=== PATIENT | female | born 1980 | race Caucasian/White ===

== ENCOUNTER 2020-03-30 10:56 | Outpatient (REF) | payer OTHER, SELFPAY ==
[2020-03-30 14:38] LABS: MANUAL DIFF FLAG NO
[2020-03-30 14:41] LABS: Basophils Percent Auto 0.4 % (0-2); Eosinophils Absolute Auto 0.1 X10*3/uL (0.0-0.4); Eosinophils Percent Auto 0.6 % (0-4); Hematocrit 39.6 % (37-47); Hemoglobin 13.1 g/dl (12.0-16.0); Imm Gran Abs Auto 0.04 X10*3/uL (0.00-0.03); Imm Gran Pct Auto 0.4 % (0.0-0.4); Lymphocytes Absolute Auto 2.9 X10*3/uL (1.2-4.9); Mean Corpuscular HGB Conc 33.1 g/dl (31.0-35.0); Mean Corpuscular Hemoglobin 30.2 pg (27.0-33.0); Mean Corpuscular Volume 91.2 fL (80-98); Mean Platelet Volume 10.8 fL (9.4-12.3); Monocytes Absolute Auto 0.5 X10*3/uL (0.1-1.2); Monocytes Percent Auto 4.8 % (2-11); Neutrophils Absolute Auto 6.8 X10*3/uL (2.0-8.3); Neutrophils Percent Auto 65.8 % (45-73); Platelet Count 282 X10*3/uL (160-400); Red Blood Count 4.34 X10*6/uL (4.20-5.50); Red Cell Distribution Width 12.4 % (11.0-16.0); White Blood Count 10.3 X10*3/uL (4.8-10.8)
[2020-03-30 15:09] LABS: Alanine Aminotransferase 20 U/L (0-31); Anion Gap 13 (12-20); Aspartate Amino Transferase 19 U/L (5-31); Blood Urea Nitrogen 10 mg/dL (9-16); Calcium 9.2 mg/dL (8.4-10.2); Carbon Dioxide 26 mmol/L (22-29); Chloride 103 mmol/L (96-108); Cholesterol 187 mg/dL; Estimated Glomerular Filt Rate > 60; Glucose Fasting 90 mg/dL (60-99); HDL Cholesterol 81 mg/dL; LDL Cholesterol Calculated 89 mg/dl; Potassium 4.2 mmol/l (3.3-5.1); Sodium 138 mmol/L (135-145); Triglycerides 88 mg/dL
[2020-03-30 15:32] LABS: TSH reflex Free T4 1.06 mIU/mL (0.32-4.0); Vitamin D 25-OH Total 31.1 ng/mL (>30)
[2020-03-30 15:49] LABS: Folate > 20.0 ng/mL (> or = 4.0); Vitamin B12 465 pg/mL (200-900)
== END 2020-03-30 10:57 | disposition home or self-care (01) ==
LOC: HO.HMGCLDS 10:56
PROVIDERS: PCP Internal Medicine; Visit Provider Internal Medicine
DX: Z00.01 Encounter for general adult medical examination with abnormal findings (principal); R53.83 Other fatigue; N94.3 Premenstrual tension syndrome; E55.9 Vitamin D deficiency, unspecified; E66.9 Obesity, unspecified; I10 Essential (primary) hypertension
CPT/HCPCS: 36415; 80048; 80061; 82306; 82607; 82746; 84443; 84450; 84460; 85025

== ENCOUNTER 2021-04-01 11:40 | Outpatient (REF) | payer OTHER, SELFPAY ==
[2021-04-01 11:46] LABS: MANUAL DIFF FLAG NO
[2021-04-01 14:03] LABS: Basophils Absolute Auto 0.1 X10*3/uL (0.0-0.2); Basophils Percent Auto 0.5 % (0-2); Eosinophils Absolute Auto 0.1 X10*3/uL (0.0-0.4); Eosinophils Percent Auto 1.2 % (0-4); Hematocrit 39.4 % (37.0-47.0); Imm Gran Abs Auto 0.04 X10*3/uL (0.00-0.03); Imm Gran Pct Auto 0.4 % (0.0-0.4); Lymphocytes Absolute Auto 3.1 X10*3/uL (1.2-4.9); Lymphocytes Percent Auto 29.6 % (20-40); Mean Corpuscular Hemoglobin 29.5 pg (27.0-33.0); Mean Corpuscular Volume 89.3 fL (80.0-98.0); Mean Platelet Volume 10.4 fL (9.4-12.3); Monocytes Absolute Auto 0.5 X10*3/uL (0.1-1.2); Monocytes Percent Auto 4.3 % (2-11); Neutrophils Absolute Auto 6.6 x10*3/uL (2.0-8.3); Platelet Count 288 X10*3/uL (160-400); Red Blood Count 4.41 X10*6/uL (4.20-5.50); Red Cell Distribution Width 12.6 % (11.0-16.0); White Blood Count 10.4 X10*3/uL (4.8-10.8)
[2021-04-01 14:22] LABS: Alanine Aminotransferase 24 U/L (0-31); Anion Gap 16 (12-20); Aspartate Amino Transferase 22 U/L (5-31); Blood Urea Nitrogen 11 mg/dL (9-16); Carbon Dioxide 20 mmol/L (22-29); Chloride 107 mmol/L (96-108); Cholesterol 189 mg/dL; Estimated Glomerular Filt Rate > 60; Glucose Fasting 94 mg/dL (60-99); HDL Cholesterol 79 mg/dL; LDL Cholesterol Calculated 85 mg/dl; Potassium 4.1 mmol/L (3.3-5.1); Sodium 139 mmol/L (135-145); Triglycerides 125 mg/dL
[2021-04-01 14:43] LABS: Vitamin D 25-OH Total 33.5 ng/mL (>30)
== END 2021-04-01 11:41 | disposition home or self-care (01) ==
LOC: HO.HMGCLDS 11:40
PROVIDERS: PCP Internal Medicine; Visit Provider Internal Medicine
DX: Z00.01 Encounter for general adult medical examination with abnormal findings (principal); R53.83 Other fatigue; N94.3 Premenstrual tension syndrome; R42 Dizziness and giddiness; I10 Essential (primary) hypertension
CPT/HCPCS: 36415; 80048; 80061; 82306; 84443; 84450; 84460; 85025

== ENCOUNTER 2021-04-15 09:30 | Outpatient (RCR) | payer OTHER, SELFPAY ==
[2021-04-10 07:53] VITALS: BP 142/82; PULSE 100; O2SAT 98
--- NOTE | 2021-04-10 09:02 | MHC.PT.EP ---
[facility] [place] Office [place] [facility] [place] Office [address] Omid Alfredo [address] [phone] F: [phone] F: [phone] F: [phone] F: [phone] Physical Therapy Plan of Care Date of Evaluation: Date of Surgery: Diagnosis: This is a 40 yo female presenting to skilled PT with a script for dizziness and giddiness, positional lightheadedness. Assessment: This is a 40 yo female presenting to skilled PT with a script for dizziness and giddiness, positional lightheadedness. Patient reporting that she has been dizzy for a little over a month. Symptoms have improved but she continues to feel symptoms when rolling in the bed to the R and looking up/down in the shower. Examination shows normal oculomotor tests except for horizontal saccades with ML, (-) VBI B, and WFL cervical AROM (but has tightness). She was (+) for BPPV with veronique-hallpike and R lina maneuver which was improved s/p tx. She demos normal scores on the balance tests. S/S consistent with R PC BPPV and she would benefit from PT 2x/wk for 4wks to address impairments, implement HEP and optimize functional mobility. Frequency and Duration: The patient will be seen 2x/wk for 4wks Short Term Goals: Corporate Scheduler Goals: I in HEP No nystagmus or symptoms in any testing positions No LOB noted and normal scores on balance tests Return to sleeping as normal without dizziness Treatment Plan: Modalities to reduce pain, spasms and effusion. Manual therapy to restore motion and function. Therapeutic exercise to improve strength and flexibility. Neuromuscular re-education for posture and balance. Therapeutic activities to return to functional activities of daily living. Electronically signed by: Negra Crandall PT Please sign and return to therapist. Thank you for your referral.
--- NOTE | 2021-05-23 13:43 | MHC.PT.DC ---
[facility] [place] Office [place] Office [place] Office [address] Omid Alfredo [address] [phone] F: [phone] F: [phone] F: [phone] F: [phone] Physical Therapy Discharge Report Diagnosis: This is a 40 yo female presenting to skilled PT with a script for dizziness and giddiness, positional lightheadedness. Date of Surgery: Date of Evaluation: 04/10/21 Date of Discharge: 05/23/21 Treatments to Date: 2 Cancellations to Date: 0 No Shows to Date: 0 Discharge Status: Achieved Goals Improved Function Independent with HEP Discharge Summary: Patient with improvements since eval. No symptoms at the last tx session and she did not do her HEP due to improvements in symptoms. She was negative in all 6 canals and demo'd normal scores on balance tests. Educated on calling office if symptoms returned. Chart was kept open for 30 days. Electronically signed by: Negra Crandall, PT Please sign and return to therapist. Thank you for your referral.
== END 2021-05-23 13:43 | disposition home or self-care (01) ==
LOC: HO.PTCHIC 09:30
PROVIDERS: PCP Internal Medicine; Visit Provider Internal Medicine
DX: R42 Dizziness and giddiness (principal)
CPT/HCPCS: 95992; 97161

== ENCOUNTER 2022-04-09 08:51 | Outpatient (REF) | payer OTHER, SELFPAY ==
--- NOTE | ~2022-04-09 | XR_ITS ---
EXAMINATION: XR CERVICAL SPINE CLINICAL INFORMATION: Pain COMPARISON: None TECHNIQUE: 6 views including oblique imaging. FINDINGS: Normal lordosis is maintained here. There is some early degenerative change most noted at C4-C5 greater than C5-C6 and C3-4. Some early posterior lipping is present. This appears mild. The oblique imaging is nondiagnostic on the left. Suboptimal rotation. On the right also suboptimal. I must consider some foraminal encroachment at C3-C4, C4-C5 greater than C5-C6 on the left. XR/XR cervical spine 4V IMPRESSION: Findings as described above. Some early degenerative changes are felt to be present. If further evaluation is warranted recommend MR.
[2022-04-09 13:26] LABS: Alanine Aminotransferase 23 U/L (0-31); Anion Gap 17 (12-20); Aspartate Amino Transferase 21 U/L (5-31); Blood Urea Nitrogen 12 mg/dL (9-16); Calcium 9.5 mg/dL (8.4-10.2); Carbon Dioxide 18 mmol/L (22-29); Chloride 107 mmol/L (96-108); Cholesterol 197 mg/dL; Estimated Glomerular Filt Rate > 60; Glucose Fasting 107 mg/dL (60-99); HDL Cholesterol 84 mg/dL; LDL Cholesterol Calculated 95 mg/dl; Potassium 4.6 mmol/L (3.3-5.1); Sodium 137 mmol/L (135-145); TSH reflex Free T4 1.29 uIU/mL (0.32-4.0); Triglycerides 94 mg/dL; Vitamin D 25-OH Total 36.8 ng/mL (>30)
== END 2022-04-09 08:52 | disposition home or self-care (01) ==
LOC: HO.HMGCX 08:51
PROVIDERS: PCP Internal Medicine; Visit Provider Internal Medicine
DX: Z00.01 Encounter for general adult medical examination with abnormal findings (principal); G47.9 Sleep disorder, unspecified; M54.2 Cervicalgia
CPT/HCPCS: 36415; 72050; 80048; 80061; 82306; 84443; 84450; 84460

== ENCOUNTER 2023-04-22 08:05 | Outpatient (AMB) | payer OTHER, SELFPAY ==
[2023-04-22 08:10] VITALS: BP 148/90; PULSE 101; O2SAT 100; BMI 38.3
--- NOTE | 2023-04-22 08:10 | MHC.PC.OV ---
Vital Signs 04/22/23 08:10 04/22/23 09:08 Height 5 ft 6 in Weight 237 lb 2 oz BMI 38.3 BP 148/90 H 130/75 Blood Pressure Location Lt brachial Lt brachial Position Sitting Sitting Pulse 101 H 94 Pulse Source Pulse Oximeter Palpation Pulse Oximetry (%) 100 Oxygen Delivery Method Room Air Intake Visit Reasons: Annual PE Intake Note: Pt is here for her Annual PE Is last menstrual period known: Yes Last menstrual period: 02/24/23 Allergies No Known Allergies Allergy (Verified 04/22/23 08:24) Medication List - Last Reconciled 04/22/23 by wSati Elizabeth MD B-complex with vitamin C 1 tab PO DAILY cetirizine (Zyrtec) 10 mg PO DAILY PRN cholecalciferol (vitamin D3) 50 mcg PO DAILY ibuprofen (IBU-200) 400 mg PO Q8H magnesium 250 mg PO DAILY multivitamin 1 tab PO DAILY Tobacco use date assessed: 04/22/23 Dental Screening Dental Screen Date: 04/22/23 Did you have a dental visit in the last 12 months?: Yes Did you have a dental problem in the last 6 months where you did not have access to dental care?: No Was dental information given to patient?: Patient has dentist HPI Annual PE HPI Details 42year old lady here today for physical exam. She is up-to-date with her screening mammogram, gets it done at [facility]. She has her own OBGYN, Dr. Cabrera, who does her cervical cancer screening, last done in 2021 with negative findings. She had an initial screening colonoscopy last year Dr. Givens, due to positive family history for colon cancer, which showed presence of diverticulosis, no polyps, due for recheck again in 5 years Complaining of cyst in her left gluteal fold which has been present now for the last several days, it seems to be getting bigger, has had in the past. Denies any discharge. Was having has intermittent episodes of headaches, joint pains and having intermittent episodes of nocturnal hot flashes over the last several months. She was taken off her control pills last February 2023 and headache seems to be getting better but is having more joint pains mainly in her fingers, knees and lower extremities as well as shoulders. Lives a sedentary lifestyle, has gained a lot a weight, and denies any regular exercise. [facility] Medical History (Updated 04/24/23 @ 05:12 by Swati Elizabeth MD) Impaired fasting glucose Perimenopause Obesity (BMI 30-39.9) Irregular bowel habits Colon cancer screening PMS (premenstrual syndrome) Palpitations Surgical History History of section Family History Father Arrhythmia Mother HTN (hypertension) Sister Hypothyroidism Mental health disorder Maternal Grandmother Alzheimer's disease Maternal Aunt Breast cancer Paternal Aunt Breast cancer Brother Mental health disorder Sister No problems noted. Son No problems noted. Son No problems noted. Daughter No problems noted. Paternal Grandmother Colon cancer Social History Housing: House Alcohol intake: current Patient Tobacco Use Status: Former Tobacco user Years Smoked: 10- yrs e-Cigarette/Vaping Use: Never Used Second Hand Smoke Exposure: No service: No Current occupational status: employed Cognitive needs: No Hearing needs: No Vision needs: Yes Female Reproductive History Menstrual Date of last menstrual period: 02/24/23 Questionnaire PHQ-9 Over the last 2 weeks, how often have you been bothered by any of the following problems? 1. Little interest or pleasure in doing things: not at all 2. Feeling down, depressed, or hopeless: not at all 3. Trouble falling or staying asleep, or sleeping too much: not at all 4. Feeling tired or having little energy: several days 5. Poor appetite or overeating: not at all 6. Feeling bad about yourself - or that you are a failure or have let yourself or your family down: not at all 7. Trouble concentrating on things, such as reading the newspaper or watching television: not at all 8. Moving or speaking so slowly that other people could have noticed. Or the opposite - being so fidgety or restless that you have been moving around a lot more than usual: not at all 9. Thoughts that you would be better off or of hurting yourself in some way: not at all Total score: 1 Depression Screening Interpretation: Negative Depression Screening Done: Yes 20224 - PHQ-9 Billing: Yes Source: Developed by Drs. Renny Lawson, Yakelin Oglesby, Harley Wakefield and colleagues, with an educational lake from [employer]. Thrive Questionnaire Date Thrive assessed: 04/22/23 I am a: Patient What is your living situation today?: I have a steady place to live Within the past 12 months, did the food you bought not last and you didn't have the money to get more?: Never true Within the past 12 months, did you worry whether your food would run out before you got money to buy more?: Never true Do you have trouble paying for medicines?: No Do you have trouble getting transportation to medical appointments?: No Do you have trouble paying your heating and electricity bill?: No Do you have trouble taking care of your child, family member or friend?: No Do you have trouble with day-to-day activities such as bathing, preparing meals, shopping, managing finances, etc.?: No Are you currently unemployed and looking for a job?: No Are you interested in more education?: No AUDIT C Alcohol Use Questionnaire (AUDIT-C) 1. How often do you have a drink containing alcohol?: Never Total Score: 0 CROW-7 AMB Questionnaire CROW-7 Date CROW - 7 assessed: 04/22/23 Feeling nervous, anxious, or on edge: 0 = Not at all Not being able to stop or control worryin = Not at all Worrying too much about different things: 0 = Not at all Trouble relaxin = Not at all Being so restless that it is hard to sit still: 0 = Not at all Becoming easily annoyed or irritable: 0 = Not at all Feeling afraid as if something awful might happen: 0 = Not at all Total CROW-7 score (0-4 normal; 5-9 mild; 10-14 moderate; 15-21 severe): 0 Source: Developed by Drs. Renny Lawson, Yakelin Oglesby, Harley Wakefield and colleagues, with an educational lake from [employer]. CORW-7 Assessment Billing CROW-7 Assessment Tool: CROW-7 Assessment 43875 Review of Systems Const Reports as per HPI, Reports body aches, Denies fever(s), Denies frequent falls, Denies lethargy, Denies malaise, Reports night sweats and Reports weight gain Eyes Denies change in vision ENT Reports Normal hearing present, Denies nasal congestion, Denies nasal discharge and Denies sore throat Card Denies chest pain, Denies syncope, Denies lightheadedness, Denies palpitations and Denies dyspnea Resp Denies chest congestion, Denies cough, Denies dyspnea and Denies wheezing GI Denies abdominal pain, Denies melena, Denies bloating, Denies hematochezia and Denies heartburn Details: Has not had her period since February 2023 after discontinuation of her control pills Denies urinary frequency, Denies dysuria and Denies urinary urgency Musc Reports as per HPI, Denies back pain, Denies joint swelling and Reports stiffness Skin/Breast Reports as per HPI and Denies rash Neuro Reports Normal hearing present, Denies syncope, Denies frequent falls, Denies focal weakness and Denies Sensory deficit (Neuro) Psych Reports no additional complaints Endo Denies polydipsia, Denies polyuria and Denies palpitations Gary/Lymph Denies easy bruising Aller/Immun Denies seasonal rhinorrhea and Denies wheezing Physical exam (Primary Care) Vital Signs: Last Vital Signs Pulse 94 04/22/23 09:08 BP 130/75 04/22/23 09:08 Pulse Ox 100 04/22/23 08:10 Oxygen Delivery Method Room Air 04/22/23 08:10 Care Plan Goal for BP management: Advised to lose weight through diet and exercise, Mediterranean diet given Next steps: Follow-up in July 2023 BMI result Body Mass Index 38.3 BMI Assessment/Plan discussion: High BMI High, discussed plan: lifestyle, weight reduction, dietary and physical activity Tobacco/Smoking Status: Tobacco use Status Tobacco use date assessed 04/22/23 04/22/23 08:15 Patient Tobacco Use Status Former Tobacco user 04/22/23 08:10 e-Cigarette/Vaping Use Never Used 04/22/23 08:10 PHQ-9: PHQ-9 Score PHQ-9: Total score 1 04/22/23 09:23 Depression Screening Interpretation: Negative Thrive Assessment: Date of Thrive Assessment Date Thrive assessed 04/22/23 04/22/23 09:23 Const General: healthy appearing, no acute distress and alert Orientation/consciousness: patient oriented x3 HENMT Head: Yes normocephalic and Yes atraumatic Ears: external ears normal, TM's normal bilaterally and EAC's normal General nose exam: Normal external nose present and No nasal discharge present Face and sinus: Yes face symmetric Mouth: oropharynx normal and moist mucous membranes Eyes Conjunctivae: conjunctivae normal Sclerae: sclerae normal Pupils: Equal, round and reactive pupils present EOM: EOMs intact bilaterally Neck Neck: Yes full ROM and Yes no lymphadenopathy Thyroid: Thyroid normal Carotids: normal carotid upstroke Lymphatic: no lymphadenopathy noted Chest Chest palpation & inspection: normal inspection of the chest Breast/axilla palpation: normal palpation of the breasts Resp Effort & Inspection: normal respiratory effort and able to speak in complete sentences Auscultation: clear to auscultation bilaterally Cardio Jugular venous distension: no JVD Rate: regular rate Rhythm: regular rhythm Heart sounds: S1 normal heart sound present and S2 normal heart sound present GI Inspection: Yes normal to inspection Palpation (GI): Soft to palpation Auscultation: normal bowel sounds General: Yes no CVA tenderness and Yes deferred (Sees her OBGYN, last Pap 2021) Back/Spine/Pelvis Back: no CVA tenderness Skin Lesions: lesion noted (Right intergluteal fold swelling and erythema) Neuro General: patient oriented x3, gait normal, moves all extremities, no focal motor deficits and CN's II-XI intact bilaterally Cranial nerves: Yes Equal, round and reactive pupils present and Yes Normal hearing present Cognition (Neuro): normal cognition Gait exam (Neuro): Normal gait present Motor exam (neuro): 5/5 motor strength present throughout Sensory Exam: No Sensory deficit (Neuro) Extrem General: Yes normal to inspection, Yes full ROM, Yes no pedal edema and Yes normal gait Psych Appearance: grossly normal and well kempt Mental Status: mental status grossly normal Speech and movement: Normal speech and movement present Affect: normal affect Attitude: cooperative Thought content: Normal thought content present Assessment and Plan Assessment & Plan (1) Annual visit for general adult medical examination with abnormal findings: Code(s): Z00.01 - Encounter for general adult medical examination with abnormal findings Plan: Will check appropriate labs. She had a CBC and TSH level done at [facility] 03/06/2023 which showed normal findings. Continue dental visit every 6 months and regular eye exams, at least every 2 years, sees her eye doctor in [facility] [place] Dr. Quinonez. . Take adequate calcium in diet and vitamin-D 3 at 2000 IU per cap once a day, in addition to weight-bearing exercises to help maintain good muscle tone and weight control. Instructed to do self-breast exam, and continue to get yearly mammogram, currently up-to-date. She sees Dr. Julián Cabrera for her routine Pap and pelvic exam, last Pap was done in 2021 with normal findings. Repeat again in 2026. Patient declines getting any further COVID booster or flu shot, up-to-date with her Tdap. She has had a screening colonoscopy done by Dr. Krishna exam 7 in 2021 with negative findings except for presence of diverticulosis, repeat due again in 2026 due to positive family history of colon cancer. (2) Obesity (BMI 30-39.9): Code(s): E66.9 - Obesity, unspecified Plan: Discussed need to increase activity and wt reduction. Recommended focusing on improving your health instead of dieting. : Eat Mediterranean diet, limit foods high in fat, sugar, and calories, eat slowly, pay attention to portion sizes, plan your meals ahead of time, start regular physical activity 150 minutes of moderate intensity exercise or 90 minutes/week of vigorous exercise and increase water intake. (3) Gluteal cleft wound: Code(s): S31.809A - Unspecified open wound of unspecified buttock, initial encounter Qualifiers: Encounter type: initial encounter Laterality: left Qualified Code(s): S31.829A - Unspecified open wound of left buttock, initial encounter Plan: Prescription sent for doxycycline hyclate 100 mg per capsule to take 1 every 12 hours for 10 days. Take it always with food. Orders: Orders Vitamin B12 and Folate 04/22/23 E66.9 - Obesity, unspecified, N95.1 - Menopausal and female climacteric states, Z00.01 - Encounter for general adult medical examination with abnormal findings Lipid Panel 04/22/23 E66.9 - Obesity, unspecified, N95.1 - Menopausal and female climacteric states, Z00.01 - Encounter for general adult medical examination with abnormal findings Hemoglobin A1c 04/22/23 E66.9 - Obesity, unspecified, N95.1 - Menopausal and female climacteric states, Z00.01 - Encounter for general adult medical examination with abnormal findings CRP High Sensitivity 04/22/23 E66.9 - Obesity, unspecified, N95.1 - Menopausal and female climacteric states, Z00.01 - Encounter for general adult medical examination with abnormal findings Erythrocyte Sedimentation Rate 04/22/23 E66.9 - Obesity, unspecified, N95.1 - Menopausal and female climacteric states, Z00.01 - Encounter for general adult medical examination with abnormal findings Vitamin D 25-OH Total 04/22/23 E66.9 - Obesity, unspecified, N95.1 - Menopausal and female climacteric states, Z00.01 - Encounter for general adult medical examination with abnormal findings Alanine Aminotransferase 04/22/23 E66.9 - Obesity, unspecified, N95.1 - Menopausal and female climacteric states, Z00.01 - Encounter for general adult medical examination with abnormal findings Aspartate Amino Transferase 04/22/23 E66.9 - Obesity, unspecified, N95.1 - Menopausal and female climacteric states, Z00.01 - Encounter for general adult medical examination with abnormal findings Basic Metabolic Panel Fasting 04/22/23 E66.9 - Obesity, unspecified, N95.1 - Menopausal and female climacteric states, Z00.01 - Encounter for general adult medical examination with abnormal findings Medications: New doxycycline hyclate 100 mg PO BID 10 days 20 caps 0RF Coding Level of Care Code Est Pt Prev Care 40-64y(58775) Diagnoses Annual visit for general adult medical examination with abnormal findings Z00.01 Obesity (BMI 30-39.9) E66.9 Wound of gluteal cleft, left, initial encounter S31.829A Encounter type: initial encounter Laterality: left Additional Codes CROW-7 Assessment Billing - CROW-7 Assessment Tool: CROW-7 Assessment [id number] ([id number])
[2023-04-22 09:08] VITALS: BP 130/75; PULSE 94
== END 2023-04-22 10:44 | disposition home or self-care (01) ==
PROVIDERS: Visit Provider Internal Medicine
DX: Z00.01 Encounter for general adult medical examination with abnormal findings (principal); S31.829A Unspecified open wound of left buttock, initial encounter; E66.09 Other obesity due to excess calories; Z68.38 Body mass index [BMI] 38.0-38.9, adult
CPT/HCPCS: 99213; 99396

== ENCOUNTER 2023-04-22 09:05 | Outpatient (REF) | payer OTHER, SELFPAY ==
[2023-04-22 11:42] LABS: Estimated Average Glucose 105 mg/dL; Hemoglobin A1c % 5.3 % (<6.0)
[2023-04-22 11:59] LABS: Alanine Aminotransferase 68 U/L (0-31); Anion Gap 14 (12-20); Aspartate Amino Transferase 37 U/L (5-31); Blood Urea Nitrogen 12 mg/dL (9-16); Carbon Dioxide 24 mmol/L (22-29); Chloride 106 mmol/L (96-108); Cholesterol 208 mg/dL (<200); Estimated Glomerular Filt Rate > 60; Glucose Fasting 102 mg/dL (60-99); HDL Cholesterol 73 mg/dL (>40); LDL Cholesterol Calculated 119 mg/dL (<100); Potassium 4.2 mmol/L (3.3-5.1); Sodium 140 mmol/L (135-145); Triglycerides 84 mg/dL (<150)
[2023-04-22 12:10] LABS: Erythrocyte Sedimentation Rate 9 MM/HR (0-20)
[2023-04-22 12:18] LABS: Vitamin D 25-OH Total 68.3 ng/mL (>30)
[2023-04-22 12:19] LABS: Folate 17.7 ng/mL (> or = 4.0); Vitamin B12 1071 pg/mL (200-900)
[2023-04-24 22:29] LABS: CRP High Sensitivity 6.7 mg/L
== END 2023-04-22 09:06 | disposition home or self-care (01) ==
LOC: HO.HMGCLDS 09:05
PROVIDERS: PCP Internal Medicine; Visit Provider Internal Medicine
DX: Z00.01 Encounter for general adult medical examination with abnormal findings (principal); E66.9 Obesity, unspecified; N95.1 Menopausal and female climacteric states
CPT/HCPCS: 36415; 80048; 80061; 82306; 82607; 82746; 83036; 84450; 84460; 85652; 86141

== ENCOUNTER 2023-10-05 07:42 | Outpatient (REF) | payer OTHER, SELFPAY ==
[2023-10-05 10:48] LABS: Estimated Average Glucose 103 mg/dL; Hemoglobin A1c % 5.2 % (<6.0)
[2023-10-05 10:57] LABS: Alanine Aminotransferase 25 U/L (0-31); Albumin Level 4.2 g/dL (3.5-5.0); Alkaline Phosphatase 84 U/L (39-117); Aspartate Amino Transferase 21 U/L (5-31); Bilirubin Direct 0.2 mg/dL (0.0-0.5); Bilirubin Total 0.5 mg/dL (0.0-1.0); Cholesterol 181 mg/dL (<200); Glucose Fasting 97 mg/dL (60-99); HDL Cholesterol 66 mg/dL (>40); LDL Cholesterol Calculated 89 mg/dL (<100); Total Protein 7.1 g/dL (6.5-8.0); Triglycerides 130 mg/dL (<150)
[2023-10-05 11:27] LABS: Folate 13.2 ng/mL (> or = 4.0)
[2023-10-05 11:36] LABS: Vitamin B12 674 pg/mL (200-900)
== END 2023-10-05 07:43 | disposition home or self-care (01) ==
LOC: HO.HMGCLDS 07:42
PROVIDERS: PCP Internal Medicine; Visit Provider Internal Medicine
DX: E66.9 Obesity, unspecified (principal); R73.01 Impaired fasting glucose; R74.8 Abnormal levels of other serum enzymes; R74.01 Elevation of levels of liver transaminase levels
CPT/HCPCS: 36415; 80061; 80076; 82607; 82746; 82947; 83036

== ENCOUNTER 2023-10-15 09:09 | Outpatient (AMB) | payer OTHER, SELFPAY ==
[2023-10-15 09:40] VITALS: BP 126/70; PULSE 92; O2SAT 100; BMI 36.6
--- NOTE | 2023-10-15 09:40 | A.OFFPC_ITS ---
Vital Signs 10/15/23 09:40 Height 5 ft 6 in Weight 227 lb BMI 36.6 BP 126/70 Blood Pressure Location Lt brachial Position Sitting Pulse 92 Pulse Source Pulse Oximeter Pulse Oximetry (%) 100 Oxygen Delivery Method Room Air Intake Visit Reasons: rescheduled from 10/07/2023 Intake Note: Pt is here today to discuss recent lab results Allergies No Known Allergies Allergy (Verified 10/19/23 00:38) Medication List - Last Reconciled 10/19/23 by Swati Elizabeth MD cetirizine (Zyrtec) 10 mg PO DAILY PRN cholecalciferol (vitamin D3) 50 mcg PO DAILY ibuprofen (IBU-200) 400 mg PO Q8H magnesium 250 mg PO DAILY multivitamin 1 tab PO DAILY Tobacco use date assessed: 10/15/23 Dental Screening Dental Screen Date: 10/15/23 Did you have a dental visit in the last 12 months?: Yes Did you have a dental problem in the last 6 months where you did not have access to dental care?: No Was dental information given to patient?: Patient has dentist HPI rescheduled from 10/07/2023 HPI Details 43-year-old lady here today complaining of pain in her left knee which has been present for the last several weeks . She denies any history of trauma or any strenuous exertion, has been taking ibuprofen which affords temporary relief. She also complains of occasional pain in her left hip joint, worse w ith walking or staying in one position for extended periods of time. No history of falls. [facility] Medical History (Updated 10/19/23 @ 00:51 by Swati Elizabeth MD) Impaired fasting glucose Obesity (BMI 30-39.9) Colon cancer screening PMS (premenstrual syndrome) Palpitations Surgical History History of section Family History Father Arrhythmia Mother HTN (hypertension) Sister Hypothyroidism Mental health disorder Maternal Grandmother Alzheimer's disease Maternal Aunt Breast cancer Paternal Aunt Breast cancer Brother Mental health disorder Sister No problems noted. Son No problems noted. Son No problems noted. Daughter No problems noted. Paternal Grandmother Colon cancer Social History Housing: House Alcohol intake: current Patient Tobacco Use Status: Former Tobacco user Years Smoked: 10- yrs e-Cigarette/Vaping Use: Never Used Second Hand Smoke Exposure: No service: No Current occupational status: employed Cognitive needs: No Hearing needs: No Vision needs: Yes Questionnaire PHQ-9 Over the last 2 weeks, how often have you been bothered by any of the following problems? 1. Little interest or pleasure in doing things: not at all 2. Feeling down, depressed, or hopeless: not at all 3. Trouble falling or staying asleep, or sleeping too much: not at all 4. Feeling tired or having little energy: not at all 5. Poor appetite or overeating: not at all 6. Feeling bad about yourself - or that you are a failure or have let yourself or your family down: not at all 7. Trouble concentrating on things, such as reading the newspaper or watching television: not at all 8. Moving or speaking so slowly that other people could have noticed. Or the opposite - being so fidgety or restless that you have been moving around a lot more than usual: not at all 9. Thoughts that you would be better off or of hurting yourself in some way: not at all Total score: 0 Depression Screening Interpretation: Negative Depression Screening Done: Yes 68508 - PHQ-9 Billing: Yes Source: Developed by Drs. Renny Lawson, Yakelin Oglesby, Harley Wakefield and colleagues, with an educational lake from [employer]. Thrive Questionnaire Date Thrive assessed: 10/15/23 I am a: Patient What is your living situation today?: I have a steady place to live Within the past 12 months, did the food you bought not last and you didn't have the money to get more?: Never true Within the past 12 months, did you worry whether your food would run out before you got money to buy more?: Never true Do you have trouble paying for medicines?: No Do you have trouble getting transportation to medical appointments?: No Do you have trouble paying your heating and electricity bill?: No Do you have trouble taking care of your child, family member or friend?: No Do you have trouble with day-to-day activities such as bathing, preparing meals, shopping, managing finances, etc.?: No Are you currently unemployed and looking for a job?: No Are you interested in more education?: No THRIVE Score: 0 AUDIT C Alcohol Use Questionnaire (AUDIT-C) 1. How often do you have a drink containing alcohol?: Monthly or less 2. How many drinks containing alcohol do you have on a typical day when you are drinking?: 1 or 2 3. How often do you have six or more drinks on one occasion?: Never Total Score: 1 CROW-7 AMB Questionnaire CROW-7 Date CROW - 7 assessed: 10/15/23 Feeling nervous, anxious, or on edge: 0 = Not at all Not being able to stop or control worryin = Not at all Worrying too much about different things: 0 = Not at all Trouble relaxin = Not at all Being so restless that it is hard to sit still: 0 = Not at all Becoming easily annoyed or irritable: 0 = Not at all Feeling afraid as if something awful might happen: 0 = Not at all Total CROW-7 score (0-4 normal; 5-9 mild; 10-14 moderate; 15-21 severe): 0 Source: Developed by Drs. Renny Lawson, Yakelin Oglesby, Harley Wakefield and colleagues, with an educational lake from [employer]. Review of Systems Const All systems reviewed & are unremarkable except as noted in HPI and below ENT Reports Normal hearing present Card Reports no additional complaints Resp Reports no additional complaints GI Reports no additional complaints Reports no additional complaints Musc Reports as per HPI Neuro Reports Normal hearing present and Denies Sensory deficit (Neuro) Physical exam (Primary Care) Vital Signs: Last Vital Signs Pulse 92 10/15/23 09:40 BP 126/70 10/15/23 09:40 Pulse Ox 100 10/15/23 09:40 Oxygen Delivery Method Room Air 10/15/23 09:40 BMI result Body Mass Index 36.6 Tobacco/Smoking Status: Tobacco use Status Tobacco use date assessed 10/15/23 10/15/23 09:47 Patient Tobacco Use Status Former Tobacco user 10/15/23 09:41 e-Cigarette/Vaping Use Never Used 10/15/23 09:41 PHQ-9: PHQ-9 Score PHQ-9: Total score 0 06/03/24 00:39 Depression Screening Interpretation: Negative Thrive Assessment: Date of Thrive Assessment Date Thrive assessed 10/15/23 10/15/23 09:47 Const General: healthy appearing, no acute distress and alert Orientation/consciousness: patient oriented x3 Neck Neck: Yes full ROM and Yes no lymphadenopathy Thyroid: Thyroid normal Resp Effort & Inspection: normal respiratory effort and able to speak in complete sentences Auscultation: clear to auscultation bilaterally Cardio Rate: regular rate Rhythm: regular rhythm Heart sounds: S1 normal heart sound present and S2 normal heart sound present GI Inspection: Yes normal to inspection Palpation (GI): Soft to palpation Auscultation: normal bowel sounds General: Yes no CVA tenderness and Yes deferred (Sees her OBGYN, last Pap 2021) Back/Spine/Pelvis Back: no CVA tenderness Neuro General: patient oriented x3, gait normal, moves all extremities, no focal motor deficits and CN's II-XI intact bilaterally Cranial nerves: Yes Normal hearing present Cognition (Neuro): normal cognition Gait exam (Neuro): Normal gait present Motor exam (neuro): 5/5 motor strength present throughout Sensory Exam: No Sensory deficit (Neuro) Extrem General: Yes normal to inspection, Yes full ROM, Yes no pedal edema and Yes normal gait Results Reviewed Results Reviewed: RUN: 10/15/23 1008 PAGE 1 [facility] [address] [place] [id number] Manager Data Warehousing: Heladio Spencer M.D. Specimen Inquiry Name: Batool Lakhani Age/Sex: 43/F : 1980 Unit#: [id number] Attend Dr: Swati Elizabeth MD Re10/05/23 Status: DEP REF Location: [facility] Disch: SPEC : [id number] SOURAV: 10/05/23 STATUS: COMP REQ : [id number] RECD: 10/05/[address]: Swati Elizabeth MD COMP: 10/05/23 ENTERED: 10/05/[address] [facility] [address]: ORDERED: Liver Panel, Glu Fasting, Lipid Panel Test Result Flag Reference FBS 97 60-99 mg/dL Total Bili 0.5 0.0-1.0 mg/dL Direct Bili 0.2 0.0-0.5 mg/dL AST (GOT) 21 5-31 U/L ALT (GPT) 25 0-31 U/L Protein, Total 7.1 6.5-8.0 g/dL Alb 4.2 3.5-5.0 g/dL Triglyceride 130 <150 mg/dL Desirable Triglyceride: less than 150 mg/dL Borderline High Triglyceride 150-199 mg/dL High Triglyceride: 200-499 mg/dL Very High Triglyceride: greater than or equal to 5OO mg/dL Cholesterol 181 <200 mg/dL Desirable Cholesterol: less than 200 mg/dL Borderline High Cholesterol: 200-239 mg/dL High Cholesterol: greater than 239 mg/dL LDL Calculated 89 <100 mg/dL Desirable LDL: less than 100 mg/dL Near Optimal/Above Optimal LDL: 110-129 mg/dL Borderline High LDL: 130-159 mg/dL High LDL: 160-189 mg/dL Very High LDL: greater than or equal to 190 mg/dL HDL 66 >40 mg/dL Desirable HDL: greater than 40 mg/dL Note: This HDL assay may give artificially low results in patients with liver disease. Alk Phos 84 39-117 U/L Laboratory Tests 10/05/23 07:45 Estimat Average Glucose 103 Hemoglobin A1c % 5.2 Assessment and Plan Assessment & Plan (1) Left anterior knee pain: Code(s): M25.562 - Pain in left knee (2) Pain of left hip joint: Code(s): M25.552 - Pain in left hip Plan X-ray of left hip and left knee ordered. May continue taking ibuprofen as needed alternating with Tylenol arthritis every 8 hours as needed for pain. Referred for physical therapy for further evaluation management Orders: Orders XR hip LT min 2V 10/15/23 M25.552 - Pain in left hip, M25.562 - Pain in left knee XR knee LT 4V 10/15/23 M25.552 - Pain in left hip, M25.562 - Pain in left knee PT Evaluation and Treatment 10/15/23 M25.552 - Pain in left hip, M25.562 - Pain in left knee Coding Level of Care Code Est Pt Level 4 (25165) Diagnoses Left anterior knee pain M25.562 Pain of left hip joint M25.552
== END 2023-10-15 10:43 | disposition home or self-care (01) ==
PROVIDERS: PCP Internal Medicine; Visit Provider Internal Medicine
DX: M25.562 Pain in left knee (principal); M25.552 Pain in left hip
CPT/HCPCS: 99214

== ENCOUNTER 2023-10-15 10:26 | Outpatient (REF) | payer OTHER, SELFPAY ==
--- NOTE | ~2023-10-15 | XR_ITS ---
EXAMINATION: XR KNEE, LEFT CLINICAL INFORMATION: Left-sided knee pain COMPARISON: None available. TECHNIQUE: Four views of the left knee. FINDINGS: No joint effusion, fracture, dislocation or destructive process. XR/XR knee LT 4V IMPRESSION: Unremarkable exam.
--- NOTE | ~2023-10-15 | XR_ITS ---
EXAMINATION: XR HIP, LEFT CLINICAL INFORMATION: Left-sided pain COMPARISON: None available. TECHNIQUE: Two views of the left hip. FINDINGS: No fracture, dislocation or destructive process. No erosive change. XR/XR hip LT min 2V IMPRESSION: Negative study.
== END 2023-10-15 10:27 | disposition home or self-care (01) ==
LOC: HO.HMGCX 10:26
PROVIDERS: PCP Internal Medicine; Visit Provider Internal Medicine
DX: M25.552 Pain in left hip (principal); M25.562 Pain in left knee
CPT/HCPCS: 73502; 73564

== ENCOUNTER 2024-07-11 09:44 | Outpatient (AMB) | payer OTHER, SELFPAY ==
--- NOTE | 2024-07-11 10:20 | A.OFFPC_ITS ---
Vital Signs 07/11/24 10:21 Height 5 ft 6 in Weight 226 lb BMI 36.5 BP 120/80 Blood Pressure Location Rt brachial Position Sitting Respiration 15 Pulse 89 Pulse Source Pulse Oximeter Temp 98.1 F Temp Source Oral Pulse Oximetry (%) 98 Oxygen Delivery Method Room Air Intake Visit Reasons: PE Intake Note: Pt is here today for her PE Allergies No Known Allergies Allergy (Verified 07/11/24 10:48) Medication List - Last Reconciled 07/11/24 by Swati Elizabeth MD cetirizine (Zyrtec) 10 mg PO DAILY PRN cholecalciferol (vitamin D3) 50 mcg PO DAILY estradiol transdermal ibuprofen (IBU-200) 400 mg PO Q8H magnesium 250 mg PO DAILY multivitamin 1 tab PO DAILY progesterone micronized mg PO Tobacco use date assessed: 07/11/24 Dental Screening Dental Screen Date: 07/11/24 Did you have a dental visit in the last 12 months?: Yes Did you have a dental problem in the last 6 months where you did not have access to dental care?: No Was dental information given to patient?: Patient has dentist HPI PE HPI Details 43-year-old lady here today for physical exam. She is up-to-date with her cervical cancer screening , done 05/[address] Pramod Garcia, and is due for a repeat mammogram of left breast schedule tomorrow at [facility]. [facility] Medical History Impaired fasting glucose Obesity (BMI 30-39.9) Colon cancer screening PMS (premenstrual syndrome) Palpitations Surgical History History of section Family History Father Arrhythmia Mother HTN (hypertension) Sister Hypothyroidism Mental health disorder Maternal Grandmother Alzheimer's disease Maternal Aunt Breast cancer Paternal Aunt Breast cancer Brother Mental health disorder Sister No problems noted. Son No problems noted. Son No problems noted. Daughter No problems noted. Paternal Grandmother Colon cancer Social History Housing: House Alcohol intake: current Patient Tobacco Use Status: Former Tobacco user Years Smoked: 10- yrs e-Cigarette/Vaping Use: Never Used Second Hand Smoke Exposure: No service: No Current occupational status: employed Cognitive needs: No Hearing needs: No Vision needs: Yes Female Reproductive History Menstrual Other: sees Dr Pramod Garcia at [facility], Questionnaire PHQ-9 Over the last 2 weeks, how often have you been bothered by any of the following problems? 1. Little interest or pleasure in doing things: not at all 2. Feeling down, depressed, or hopeless: not at all 3. Trouble falling or staying asleep, or sleeping too much: not at all 4. Feeling tired or having little energy: not at all 5. Poor appetite or overeating: not at all 6. Feeling bad about yourself - or that you are a failure or have let yourself or your family down: not at all 7. Trouble concentrating on things, such as reading the newspaper or watching television: not at all 8. Moving or speaking so slowly that other people could have noticed. Or the opposite - being so fidgety or restless that you have been moving around a lot more than usual: not at all 9. Thoughts that you would be better off or of hurting yourself in some way: not at all Total score: 0 Depression Screening Interpretation: Negative Depression Screening Done: Yes 66327 - PHQ-9 Billing: Yes Source: Developed by Drs. Renny Lawson, Yakelin Oglesby, Harley Wakefield and colleagues, with an educational lake from [employer]. Thrive Questionnaire Date Thrive assessed: 07/11/24 I am a: Patient What is your living situation today?: I have a steady place to live Within the past 12 months, did the food you bought not last and you didn't have the money to get more?: Never true Within the past 12 months, did you worry whether your food would run out before you got money to buy more?: Never true Do you have trouble paying for medicines?: No Do you have trouble getting transportation to medical appointments?: No Do you have trouble paying your heating and electricity bill?: Yes Do you have trouble taking care of your child, family member or friend?: No Do you have trouble with day-to-day activities such as bathing, preparing meals, shopping, managing finances, etc.?: No Are you currently unemployed and looking for a job?: No Are you interested in more education?: No Please select the resources that you would like help with: None Currently or been in a relationship where the following occur: No concerns reported THRIVE Score: 1 AUDIT C Alcohol Use Questionnaire (AUDIT-C) 1. How often do you have a drink containing alcohol?: 2-4 times a month 2. How many drinks containing alcohol do you have on a typical day when you are drinking?: 1 or 2 3. How often do you have six or more drinks on one occasion?: Never Total Score: 2 CROW-7 AMB Questionnaire CROW-7 Date CROW - 7 assessed: 07/11/24 Feeling nervous, anxious, or on edge: 1 = Several days Not being able to stop or control worryin = Several days Worrying too much about different things: 1 = Several days Trouble relaxin = Several days Being so restless that it is hard to sit still: 0 = Not at all Becoming easily annoyed or irritable: 0 = Not at all Feeling afraid as if something awful might happen: 0 = Not at all Total CROW-7 score (0-4 normal; 5-9 mild; 10-14 moderate; 15-21 severe): 4 Source: Developed by Drs. Renny Lawson, Yakelin Oglesby, Harley Wakefield and colleagues, with an educational lake from [employer]. CROW-7 Assessment Billing CROW-7 Assessment Tool: CROW-7 Assessment 86623 Review of Systems Const Reports no additional complaints Eyes Details: Up-to-date with eye exam ENT Details: Gets dental prophylaxis every 6 Reports Normal hearing present, Reports nasal congestion (worse at night ) and Reports post nasal drip Card Denies chest pain, Denies pedal edema, Denies irregular heart rhythm and Denies lightheadedness Resp Reports no additional complaints GI Denies abdominal pain and Reports change in bowel habits (irregular) Reports as per HPI Musc Reports no additional complaints, Denies arthralgias and Denies muscle cramps Skin/Breast Details: So sees 2024 [facility] has an appointment in July 2024 gets screening mammogram at [facility] . has an appt for a repeat left breast mammogram tomorrow for ffup left breast calcifications seen on last mammogram Neuro Reports no additional complaints, Reports Normal hearing present and Denies Sensory deficit (Neuro) Psych Reports no additional complaints Endo Reports no additional complaints Gary/Lymph Reports no additional complaints Aller/Immun Reports as per HPI and Reports seasonal rhinorrhea Physical exam (Primary Care) Vital Signs: Last Vital Signs Temp 98.1 F 07/11/24 10:21 Pulse 89 07/11/24 10:21 Resp 15 07/11/24 10:21 BP 120/80 07/11/24 10:21 Pulse Ox 98 07/11/24 10:21 Oxygen Delivery Method Room Air 07/11/24 10:21 BMI result Body Mass Index 36.5 Tobacco/Smoking Status: Tobacco use Status Tobacco use date assessed 07/11/24 07/11/24 10:38 Patient Tobacco Use Status Former Tobacco user 07/11/24 10:21 e-Cigarette/Vaping Use Never Used 07/11/24 10:21 PHQ-9: PHQ-9 Score PHQ-9: Total score 0 07/11/24 11:01 Depression Screening Interpretation: Negative Thrive Assessment: Date of Thrive Assessment Date Thrive assessed 07/11/24 07/11/24 10:38 Currently or been in a relationship where the following occur: No concerns reported Const General: no acute distress and alert Orientation/consciousness: patient oriented x3 HENMT Head: Yes normocephalic Ears: hearing grossly normal bilaterally, external ears normal, TM's normal bilaterally and EAC's normal General nose exam: Normal external nose present Face and sinus: Yes face symmetric Mouth: Normal oral and palatal mucosa present, oropharynx normal and moist mucous membranes Eyes General: appearance normal, both eyes and all related structures Neck Neck: Yes full ROM and Yes no lymphadenopathy Thyroid: Thyroid normal Chest Breast/axilla palpation: normal palpation of the breasts Resp Effort & Inspection: normal respiratory effort and able to speak in complete sentences Auscultation: clear to auscultation bilaterally Cardio Rate: regular rate Rhythm: regular rhythm Heart sounds: S1 normal heart sound present and S2 normal heart sound present GI Inspection: Yes normal to inspection Palpation (GI): Soft to palpation Auscultation: normal bowel sounds General: Yes no CVA tenderness and Yes deferred (Sees her OBGYN, last Pap 2021) Back/Spine/Pelvis Back: no CVA tenderness Skin General skin exam: no rashes or lesions noted Neuro General: patient oriented x3, gait normal, moves all extremities, no focal motor deficits and CN's II-XI intact bilaterally Cranial nerves: Yes Normal hearing present Cognition (Neuro): normal cognition Gait exam (Neuro): Normal gait present Motor exam (neuro): 5/5 motor strength present throughout Sensory Exam: No Sensory deficit (Neuro) Extrem General: Yes normal to inspection, Yes full ROM, Yes no pedal edema and Yes normal gait Psych Appearance: grossly normal and well kempt Affect: normal affect Thought process: Normal thought process present Coding Level of Care Code Est Pt Prev Care 40-64y(18479) Diagnoses Obesity (BMI 30-39.9) E66.9 Impaired fasting glucose R73.01 Encounter for counseling regarding advance directives Z71. Annual visit for general adult medical examination with abnormal findings Z00.01 Additional Codes PHQ-9 - 13327 - PHQ-9 Billing: Yes ([id number]) CROW-7 Assessment Billing - CROW-7 Assessment Tool: CROW-7 Assessment 40934 ([id number]) Assessment & Plan Assessment & Plan (1) Obesity (BMI 30-39.9): Code(s): E66.9 - Obesity, unspecified Category: Medical Plan: Advised adherence to healthy eating habits and getting regular exercise. (2) Impaired fasting glucose: Code(s): R73.01 - Impaired fasting glucose Category: Medical Plan: Your previous fasting blood sugars were elevated above 100 mg/dL. Impaired glucose metabolism increases the risk for developing diabetes mellitus type 2, as well as heart attack and stroke later on. Lifestyle changes that promotes weight loss, healthy eating habits, and regular exercise are important, and can prevent the progression to diabetes (3) Encounter for counseling regarding advance directives: Code(s): Z71.89 - Other specified counseling Plan: Initiated the conversation about Advanced Directives. Advanced Directives help patients prepare for current and future decisions about their medical treatment and place of care. Discussed with patient that it is a process where a patients current condition and prognosis are reviewed, their wishes for information regarding their illness are elicited, and likely medical dilemmas are presented and options discussed. Healthcare proxy form completed today. The form can be amended as needed, reviewed yearly and make changes as needed (4) Annual visit for general adult medical examination with abnormal findings: Code(s): Z00.01 - Encounter for general adult medical examination with abnormal findings Plan: Will check appropriate labs. Continue with regular dental visit every 6 months and regular eye exams, at least every 2 years. Take adequate calcium in diet and vitamin-D 3 at 2000 IU per cap once a day, in addition to weight-bearing exercises to help maintain good muscle tone and weight control. Instructed to do self-breast exam, and continue with yearly mammogram. Reminded to get her COVID booster and yearly flu shot as well as a tetanus booster. Orders: Orders Alanine Aminotransferase 07/11/24 E66.9 - Obesity, unspecified, N95.1 - Menopausal and female climacteric states, R73.01 - Impaired fasting glucose, Z00.01 - Encounter for general adult medical examination with abnormal findings, Z71.89 - Other specified counseling Lipid Panel 07/11/24 E66.9 - Obesity, unspecified, N95.1 - Menopausal and female climacteric states, R73.01 - Impaired fasting glucose, Z00.01 - Encounter for general adult medical examination with abnormal findings, Z71.89 - Other specified counseling Vitamin D 25-OH Total 07/11/24 E66.9 - Obesity, unspecified, N95.1 - Menopausal and female climacteric states, R73.01 - Impaired fasting glucose, Z00.01 - Encounter for general adult medical examination with abnormal findings, Z71.89 - Other specified counseling Magnesium 07/11/24 E66.9 - Obesity, unspecified, N95.1 - Menopausal and female climacteric states, R73.01 - Impaired fasting glucose, Z00.01 - Encounter for general adult medical examination with abnormal findings, Z71.89 - Other specified counseling Aspartate Amino Transferase 07/11/24 E66.9 - Obesity, unspecified, N95.1 - Menopausal and female climacteric states, R73.01 - Impaired fasting glucose, Z00.01 - Encounter for general adult medical examination with abnormal findings, Z71.89 - Other specified counseling Basic Metabolic Panel Fasting 07/11/24 E66.9 - Obesity, unspecified, N95.1 - Menopausal and female climacteric states, R73.01 - Impaired fasting glucose, Z00.01 - Encounter for general adult medical examination with abnormal findings, Z71.89 - Other specified counseling
[2024-07-11 10:21] VITALS: BP 120/80; PULSE 89; RESP 15; TEMP 36.7; O2SAT 98; BMI 36.5
== END 2024-07-11 11:17 | disposition home or self-care (01) ==
PROVIDERS: PCP Internal Medicine; Visit Provider Internal Medicine
DX: Z00.00 Encounter for general adult medical examination without abnormal findings (principal); E66.9 Obesity, unspecified; Z68.36 Body mass index [BMI] 36.0-36.9, adult; R73.01 Impaired fasting glucose; Z71.89 Other specified counseling

== ENCOUNTER → 2024-07-11 09:44 | Outpatient (BNVA) | payer OTHER, SELFPAY | PROVIDERS: PCP Internal Medicine; Visit Provider Internal Medicine | DX: Z00.01 Encounter for general adult medical examination with abnormal findings (principal); E66.9 Obesity, unspecified; Z68.36 Body mass index [BMI] 36.0-36.9, adult; R73.01 Impaired fasting glucose; Z71.89 Other specified counseling | CPT/HCPCS: 96127 ==

== ENCOUNTER 2024-11-16 10:10 | Outpatient (REF) | payer OTHER, SELFPAY ==
[2024-11-16 13:12] LABS: MANUAL DIFF FLAG NO
[2024-11-16 13:31] LABS: Hematocrit 38.8 % (37.0-47.0); Hemoglobin 12.7 g/dl (12.0-16.0); Imm Gran Abs Auto 0.03 X10*3/uL (0.00-0.03); Imm Gran Pct Auto 0.4 % (0.0-0.4); Lymphocytes Absolute Auto 2.8 X10*3/uL (1.2-4.9); Mean Corpuscular HGB Conc 32.7 g/dl (31.0-35.0); Mean Corpuscular Hemoglobin 29.3 pg (27.0-33.0); Mean Corpuscular Volume 89.6 fL (80.0-98.0); NRBC Abs Auto 0.000 X10*3/uL (0.0-0.012); NRBC Pct Auto 0.0 /100WBC (0.0-0.2); Platelet Count 291 X10*3/uL (160-400); Red Blood Count 4.33 X10*6/uL (4.20-5.50); White Blood Count 8.5 X10*3/uL (4.8-10.8)
[2024-11-16 13:42] LABS: Alanine Aminotransferase 21 U/L (0-31); Anion Gap 10 (12-20); Aspartate Amino Transferase 23 U/L (5-31); Blood Urea Nitrogen 13 mg/dL (9-16); Calcium 8.9 mg/dL (8.4-10.2); Carbon Dioxide 25 mmol/L (22-29); Chloride 106 mmol/L (96-108); Cholesterol 194 mg/dL (<200); Estimated Glomerular Filt Rate > 60; HDL Cholesterol 62 mg/dL (>40); Magnesium 2.1 mg/dL (1.6-2.6); Potassium 4.6 mmol/L (3.3-5.1); Sodium 136 mmol/L (135-145); Triglycerides 131 mg/dL (<150)
== END 2024-11-16 10:11 | disposition home or self-care (01) ==
LOC: HO.HMGCLDS 10:10
PROVIDERS: PCP Internal Medicine; Visit Provider Internal Medicine
DX: Z00.01 Encounter for general adult medical examination with abnormal findings (principal); L65.9 Nonscarring hair loss, unspecified; Z71.89 Other specified counseling; E66.9 Obesity, unspecified; N95.1 Menopausal and female climacteric states; R73.01 Impaired fasting glucose
CPT/HCPCS: 36415; 80048; 80061; 82306; 83735; 84443; 84450; 84460; 85025